=== PATIENT | male | born 1950 | race Hispanic/Latino ===

== ENCOUNTER → 2018-10-07 | Outpatient (CLI) | payer MEDICARE ==
--- NOTE | 2018-10-07 10:44 | Diagnostic Imaging Report ---
Abdomen, 2 views. History: Renal stones. Comparison: 01/16/2017 [facility] Findings: The intestinal gas pattern is nonobstructive. There no masses or abnormal calcifications. The osseous structures are intact. IMPRESSION: No acute abdominal abnormality. Signed by: Dr. Amos Land DO on 10/07/2018 10:41 AM
== END ==
LOC: RAD 09:27
PROVIDERS: ATTEND Urology
DX: N20.0 Calculus of kidney (principal)
CPT/HCPCS: 74018